=== PATIENT | male | born 1985 | race Caucasian/White ===

== ENCOUNTER 2018-01-11 13:46 | Emergency (ER) | payer OTHER ==
[2018-01-11 13:51] VITALS: RESP 16; TEMP 97.5; O2SAT 97
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
[2018-01-11 15:36] VITALS: BP 112/73; PULSE 78
== END 2018-01-11 15:36 | disposition home or self-care (01) ==
DX: S23.3XXA Sprain of ligaments of thoracic spine, initial encounter (principal); J45.909 Unspecified asthma, uncomplicated; Z76.0 Encounter for issue of repeat prescription; V49.40XA Driver injured in collision with unspecified motor vehicles in traffic accident, initial encounter; Y92.410 Unspecified street and highway as the place of occurrence of the external cause; Y93.89 Activity, other specified